=== PATIENT | male | born 1960 | race Caucasian/White ===

== ENCOUNTER → 2018-02-23 10:16 | Outpatient (REF) | payer OTHER, SELFPAY ==
[2018-02-23 13:25] LABS: Basophils # 0.1 K/mm3 (0-0.2); Basophils % 0.8 % (0.1-2.0); Eosinophils # 0.2 K/mm3 (0.0-0.4); Hematocrit 51.4 % (42.0-52.0); Hemoglobin 17.1 g/dL (14.1-18.0); Lymphocytes # 2.6 K/mm3 (0.7-4.5); Lymphocytes % 34.3 K/mm3 (10-50); Mean Corpuscular HGB Conc 33.3 g/dL (31.8-35.4); Mean Corpuscular Hemoglobin 30.2 pg (27.0-31.2); Mean Corpuscular Volume 90.7 fl (80-94); Mean Platelet Volume 7.8 fl (7.4-10.4); Monocytes # 0.5 K/mm3 (0.1-1.0); Monocytes % 6.7 % (1.7-9.3); Neutrophils # 4.1 K/mm3 (1.8-7.8); Neutrophils % 55.2 % (37.0-80.0); Platelet Count 269 K/mm3 (142-424); Red Blood Count 5.66 M/mm3 (4.60-6.20); Red Cell Distribution Width 12.8 % (11.5-17.5); White Blood Count 7.5 K/mm3 (4.8-10.8)
[2018-02-23 14:07] LABS: Alanine Aminotransferase 34 U/L (12-78); Albumin Level 3.6 gm/dL (3.4-5.0); Albumin/Globulin Ratio 1.1 (1.1-1.8); Alkaline Phosphatase 57 U/L (46-116); Anion Gap 14.8 mEq/L (5-15); Aspartate Amino Transferase 17 U/L (15-37); Bilirubin,Total 0.3 mg/dL (0.2-1.0); Blood Urea Nitrogen 17 mg/dL (7-18); Calcium 9.1 mg/dL (8.5-10.1); Carbon Dioxide 26 mmol/L (21.0-32.0); Chloride 104 mmol/L (98-107); Chol/HDL Ratio 4.9 (1-3.5); Cholesterol 146 mg/dL (140-200); Creatinine,Serum 1.08 mg/dL (0.70-1.30); Estimated Glomerular Filt Rate 71 ml/min (>60); Free T4 (Free Thyroxine) 0.87 ng/dl (0.76-1.46); GFR (African American) 86 ML/MIN (>60); Globulin 3.3 gm/dl (1.3-3.2); Glucose 121 mg/dL (74-106); HDL Cholesterol 30 mg/dL (27-67); LDL Cholesterol 72 mg/dL (0-130); Potassium 4.8 mmoL/L (3.5-5.1); Sodium 140 mmol/L (136-145); Thyroid Stimulating Hormone 0.99 uIU/ml (0.358-3.740); Total Protein,Serum 6.9 gm/dL (6.4-8.2); Triglycerides 221 mg/dL (30-200); VLDL Cholesterol 44 mg/dL (0-40)
[2018-02-23 15:01] LABS: Hemoglobin A1C 5.7 % (0.0-7.0)
[2018-02-24 13:02] LABS: Vitamin D 25 Hydroxy 20.5 ng/mL (30.0-100.0)
== END ==
LOC: LAB 10:16
PROVIDERS: Visit Provider Nurse Practitioner Family
DX: R53.83 Other fatigue (principal); I10 Essential (primary) hypertension; Z79.899 Other long term (current) drug therapy
CPT/HCPCS: 80053; 80061; 82652; 83036; 84439; 84443; 85025

== ENCOUNTER → 2018-03-23 07:43 | Outpatient (CLI) | payer OTHER, SELFPAY ==
--- NOTE | 2018-03-23 07:48 | XR_ITS ---
XR knee RT 4V HISTORY: ITS.REASON: right knee pain/ weightbearing ORDERING PHYSICIAN: Anthony Aguilar MD PATIENT AGE: 57 years COMPARISON: 05/31/2016 FINDINGS: Severe osteoarthritic changes are present involving the medial compartment and patellofemoral joint with moderate osteoarthritis of the lateral compartment. Knee joint effusion is present in the suprapatellar region. Prominent osteophytes are present at the patellofemoral joint and lateral compartment. There is sclerosis of the medial plateau proximal tibia. There is mild lateral subluxation of the tibia of 8 mm which is slightly increased compared to the previous exam. The loss of the medial joint space worse on today's exam with increasing sclerosis at the medial joint space. IMPRESSION: Severe osteoarthritis of the right knee as described above. This has progressed somewhat compared to the previous exam
== END ==
PROVIDERS: PCP Nurse Practitioner Family; Visit Provider Orthopaedic Surgery
DX: M25.561 Pain in right knee (principal)
CPT/HCPCS: 73564

== ENCOUNTER → 2018-10-19 13:52 | Outpatient (CLI) | payer OTHER, SELFPAY ==
[2018-10-19 14:16] LABS: Basophils # 0.1 K/mm3 (0-0.2); Basophils % 1.1 % (0.1-2.0); Eosinophils # 0.3 K/mm3 (0.0-0.4); Eosinophils % 3.1 % (0.1-12.0); Hematocrit 53.5 % (42.0-52.0); Hemoglobin 17.5 g/dL (14.1-18.0); Lymphocytes # 2.2 K/mm3 (0.7-4.5); Lymphocytes % 26.8 % (10-50); Mean Corpuscular HGB Conc 32.7 g/dL (31.8-35.4); Mean Corpuscular Hemoglobin 29.6 pg (27.0-31.2); Mean Corpuscular Volume 90.6 fl (80-94); Mean Platelet Volume 8.7 fl (7.4-10.4); Monocytes # 0.5 K/mm3 (0.1-1.0); Monocytes % 6.5 % (1.7-9.3); Neutrophils # 5.1 K/mm3 (1.8-7.8); Neutrophils % 62.5 % (37.0-80.0); Platelet Count 239 K/mm3 (142-424); Red Cell Distribution Width 13.4 % (11.5-17.5); White Blood Count 8.1 K/mm3 (4.8-10.8)
[2018-10-19 14:40] LABS: Alanine Aminotransferase 65 U/L (12-78); Albumin/Globulin Ratio 1.1 (1.1-1.8); Alkaline Phosphatase 106 U/L (46-116); Anion Gap 17.3 mEq/L (5-15); Aspartate Amino Transferase 24 U/L (15-37); Bilirubin,Total 0.6 mg/dL (0.2-1.0); Blood Urea Nitrogen 21 mg/dL (7-18); Calcium 9.4 mg/dL (8.5-10.1); Carbon Dioxide 25 mmol/L (21.0-32.0); Chloride 93 mmol/L (98-107); Chol/HDL Ratio 7.3 (1-3.5); Cholesterol 161 mg/dL (140-200); Creatinine,Serum 1.34 mg/dL (0.70-1.30); Estimated Glomerular Filt Rate 55 ml/min (>60); GFR (African American) 66 ML/MIN (>60); Globulin 3.8 gm/dl (1.3-3.2); HDL Cholesterol 22 mg/dL (27-67); Potassium 4.3 mmoL/L (3.5-5.1); Sodium 131 mmol/L (136-145); T4 (Thyroxine) 9.9 ug/dl (4.7-13.3); Thyroid Stimulating Hormone 1.59 uIU/ml (0.358-3.740); Total Protein,Serum 7.8 gm/dL (6.4-8.2)
[2018-10-19 14:42] LABS: Triglycerides 641 mg/dL (30-200)
[2018-10-19 14:45] LABS: Glucose 481 mg/dL (74-106); Hemoglobin A1C 8.9 % (0.0-7.0)
[2018-10-21 06:26] LABS: Vitamin D 25 Hydroxy 25.1 ng/mL (30.0-100.0)
== END ==
PROVIDERS: Visit Provider Nurse Practitioner Family
DX: E11.9 Type 2 diabetes mellitus without complications (principal); J44.9 Chronic obstructive pulmonary disease, unspecified
CPT/HCPCS: 80053; 80061; 82652; 83036; 84436; 84443; 85025

== ENCOUNTER → 2018-11-02 10:08 | Outpatient (CLI) | payer OTHER, SELFPAY | PROVIDERS: PCP Emergency Medicine; Visit Provider Nurse Practitioner Family | DX: E11.9 Type 2 diabetes mellitus without complications (principal); Z71.3 Dietary counseling and surveillance | CPT/HCPCS: 97802 ==

== ENCOUNTER → 2020-03-11 13:35 | Outpatient (CLI) | payer OTHER, SELFPAY ==
--- NOTE | 2020-03-11 13:38 | XR_ITS ---
PROCEDURE: XR KNEE RT 4V CLINICAL INDICATION: right knee pain COMPARISON: [id number] KNEE-3 VIEWS-RT from 05/31/2016 [id number] XR knee RT 4V from 03/23/2018 FINDINGS: No fracture or dislocation. No lytic or blastic change. There is normal mineralization. Severe osteoarthritic changes are present involving the right knee greatest at the medial compartment and patellofemoral joint with loss of joint space medially. There is osteophyte formation. Bony sclerosis also noted medially. There is mild lateral subluxation of the tibia of approximately 5 mm and mild genu varum. Also suspect suprapatellar effusion. Other findings:None. IMPRESSION: Severe osteoarthritis of the right knee overall not significantly changed Dictated by: Smith Pleitez MD 03/11/2020 15:03 Electronically signed by Smith Pleitez MD in [place] 03/11/2020 15:03
== END ==
PROVIDERS: Visit Provider Orthopaedic Surgery
DX: M17.11 Unilateral primary osteoarthritis, right knee (principal); M25.561 Pain in right knee
CPT/HCPCS: 73564

== ENCOUNTER 2020-11-16 10:31 | Emergency (ER) | payer OTHER, SELFPAY ==
[2020-11-16] VITALS (8 sets, daily range): BP systolic 99–135; BP diastolic 64–75; PULSE 70–106; RESP 20–22; TEMP 36.7; O2SAT 90–93; BMI 40.6
--- NOTE | 2020-11-16 10:24 | ECG_ITS ---
APPROVED REPORT Exam: Resting ECG HR:105 bpm ECG Measurements Heart Rate 105 AXES DC 146 P 59 QRSd 90 QRS 86 QT 318 T 41 QTc 420 Conclusion Sinus tachycardia Low voltage QRS Borderline ECG Electronically signed by : Polo Luis, 11/18/2020 07:12:20
--- NOTE | 2020-11-16 10:32 | XR_ITS ---
PROCEDURE: XR CHEST PORTABLE Referring Doctor: Suresh Gardner Patient Age:60Y CLINICAL HISTORY: cp dyspnea COMPARISON: CR CXR CHEST(2 VIEWS-NOT PORTABLE) from 09/17/2015 CR XR CHEST PORTABLE from 10/23/[address] ANGIO CHEST from 11/16/2020 FINDINGS: . Dense prominent opacity left base obscures left hemidiaphragm and left heart border.. Appears reflect prominent area of dense LLL consolidation along with left pleural effusion. Left pleural effusion yields generous meniscus left lung base and towards left CP angle with minimal fluid tracking upward along the lateral left chest. The left upper lung field mildly hyperexpanded but clear upper normal pulmonary vascularity bilaterally Right lung. Upper normal markings at the right base most likely reflecting some atelectasis as CT from today reveal no the significant infiltrate here. There is some central airway thickening which is evident on the CT as well as plain film with mild peribronchial cuffing most evident at the right perihilar region. Mild accentuation of perihilar markings likely reflects the central airway inflammation/bronchitis component. IMPRESSION: Prominent dense consolidation left lower lobe. Moderate left pleural effusion. Central airway thickening and inflammatory the changes-yields periBronchial cuffing at hilar regions Dictated by: Moshe Levi MD 11/16/2020 14:32 Moshe Levi MD in [place] 11/16/2020 14:32
--- NOTE | 2020-11-16 10:37 | CT_ITS ---
PROCEDURE: CT ANGIO CHEST Referring Doctor: Suresh Gardner Patient Age:60Y CLINCIAL INDICATION: pe. Left chest pain. Dyspnea short of breath COPD current smoker COMPARISON: CR CXR CHEST(2 VIEWS-NOT PORTABLE) from 09/17/2015 CR [id number] [id number] VIEWS from 09/17/2015 CR XR CHEST PORTABLE from 10/23/2019 CR XR CHEST PORTABLE from 11/16/2020 TECHNIQUE: IV Contrast: 70ML Isovue 370 bolus administration followed by 40 mL normal saline Helical axial images obtained with thick slab MIP P sagittal and coronal reformats performed by technologist on on CT workstation. All CT scans at the facility use one or more dose reduction, viz: automated exposure control, ma/kV adjustment per patient size (including targeted exams where dose is matched to indication, i.e. head), or iterative reconstruction technique. FINDINGS: PULMONARY ARTERIES: No pulmonary embolus evident.. Central pulmonary arteries are well visualized and appear satisfactory, normal. There is some motion left lung base which degrades images LLL yielding a slight heterogeneous appearance to the left lower lobe 4th and 5th order vessels-but I believe these are satisfactory with no good evidence of intraluminal thrombus. No PE evident . AORTA: No acute finding. No thoracic aortic aneurysm or dissection evident LUNGS: . Left chest: Prominent left lower lobe dense consolidation left lung base. Above this reflects pneumonia along with atelectasis;. Air bronchograms into region, mild thickening these as well as more central airways L LL. The elevation of the left hemidiaphragm reflects the volume loss and atelectasis component in this region of density/LLL consolidation. Suggestion minimal the airspace disease posterior ELEANOR, just anterior to the major fissure. (Sagittal 67 axial 49) Minimal linear areas of what appear to be more likely scarring and atelectasis anteriorly ELEANOR. (Sagittal 69-66, axial 51, 52) Right lung: Developing emphysematous changes with mild/moderate hyperexpansion. Tiny a few scattered very tiny blebs. Right lung fairly clear with only some minimal dependent atelectasis posteriorly. No definitive focal pneumonia, nor other patchy areas of pneumonia mild. There is suggestion mild central airway thickening which could reflect bronchitis. Any wheezing clinically? PLEURA: moderate left pleural effusion. Pleural fluid is seen lying along the posterior aspect the left chest most evident towards the left base surrounding the area of LLL consolidation and/atelectasis. HEART: Heart upper normal in size size. Small pericardial effusion. MEDIASTINAL AND HILAR STRUCTURES: Slight generous hilar regions may reflect some reactive nodes in both vinicius of no discrete hilar mass. Mediastinum was scattered small to moderate nodes. No significantly enlarged nodes in the mediastinum Upper normal wall thickness of these thoracic esophagus BONY STRUCTURES: No acute bony abnormalities apparent. Only very minor degenerative changes T T-spine. LYMPH NODES: No significant enlarged lymph nodes evident. Question some slightly enlarged nodes at the hilar region which could benefit from follow-up UPPER ABDOMEN: Diffuse fatty changes of generous size liver IMPRESSION: 1..No evidence of pulmonary embolism. Aorta unremarkable 2.Underlying emphysematous changes 3..Dense Left Lower Lobe Consolidation/ Pneumonia. LLLVolume loss reflecting significant atelectasis associated with this dense pneumonia. LLL air bronchograms noted here Left upper lobe with only some minor areas of atelectasis and possible scant infiltrate but overall this is more of an LL L lobar pneumonia pattern.. 4.. Left pleural effusion, moderate size
--- NOTE | 2020-11-16 10:40 | HMH.EDGENADL ---
ED Disposition Clinical Impression: Left against medical advice Pneumonia Qualifiers: Pneumonia type: due to unspecified organism Laterality: left Lung location: lower lobe of lung Qualified Code(s): J18.9 - Pneumonia, unspecified organism Disposition: Left Against Medical Advice Condition on Discharge: Fair Prescriptions: Azithromycin 250 mg PO DAILY 5 Days #6 tab Prescription Printed Referrals: PCP,No [Primary Care Provider] - - Critical Care Critical Care Time: No Attestation: On 11/16/20, the high probability of a clinically significant, sudden or life threatening deterioration of the following system(s) required my full and direct attention, intervention and personal management. The time I documented below is in addition to time spent performing reported procedures but includes the following listed in this critical care notation. Medical Decision Making - Medical Records Medical records reviewed: Yes: I reviewed the patient's medical records. - Luis Inquiry Pt receiving controlled substance: No Vital Signs: 11/16/20 10:31 11/16/20 10:56 11/16/20 11:30 Temperature 98.1 F Temperature Source Oral Pulse Rate Pulse Rate [Right Radial] 106 H 102 H 98 H Respiratory Rate 22 20 Blood Pressure Blood Pressure [Right Arm] 99/68 L 108/67 L 117/75 Blood Pressure Mean [Right Arm] 78 80 89 Blood Pressure Source [Right Arm] Automatic Cuff Automatic Cuff Blood Pressure Position [Right Arm] Sitting Sitting Sitting 02 Sat by Pulse Oximetry 92 L 93 L 93 L Oxygen Delivery Method Room Air Room Air Room Air 11/16/20 12:12 11/16/20 12:43 11/16/20 13:39 Temperature Temperature Source Pulse Rate Pulse Rate [Right Radial] 96 H 96 H 101 H Respiratory Rate Blood Pressure Blood Pressure [Right Arm] 104/64 L 108/69 L 135/73 Blood Pressure Mean [Right Arm] 77 82 93 Blood Pressure Source [Right Arm] Automatic Cuff Automatic Cuff Automatic Cuff Blood Pressure Position [Right Arm] Sitting Sitting Sitting 02 Sat by Pulse Oximetry 90 L 91 L 92 L Oxygen Delivery Method Room Air Room Air Room Air 11/16/20 14:25 11/16/20 14:41 Temperature 98.1 F Temperature Source Pulse Rate 70 Pulse Rate [Right Radial] 96 H Respiratory Rate 22 Blood Pressure 110/71 Blood Pressure [Right Arm] 110/71 Blood Pressure Mean [Right Arm] 84 Blood Pressure Source [Right Arm] Automatic Cuff Blood Pressure Position [Right Arm] Sitting 02 Sat by Pulse Oximetry 92 L Oxygen Delivery Method Room Air Room Air - Lab Data Lab Results 11/16/20 10:30: WBC 14.3 H, RBC 5.66, Hgb 16.8, Hct 52.3 H, MCV 92.4, MCH 29.6, MCHC 32.1, RDW 16.3, Plt Count 319, MPV 15.1 H, Neut % (Auto) 61.0, Lymph % (Auto) 19.5, [place] % (Auto) 11.2 H, Eos % (Auto) 5.9, Baso % (Auto) 2.3 H, Neut # (Auto) 8.8 H, Lymph # (Auto) 2.8, [place] # (Auto) 1.6 H, Eos # (Auto) 0.8 H, Baso # (Auto) 0.3 H 11/16/20 10:30: Sodium 137, Potassium 4.2, Chloride 106, Carbon Dioxide 24, Anion Gap 11.2, BUN 15, Creatinine 1.00, Estimated Creat Clear 121, Estimated GFR 76, Est GFR ( Amer) 93, Glucose 185 H, Calcium 9.5, Troponin I < 0.01 11/16/20 10:30: Lactate 1.9 11/16/20 10:30: NT-Pro-B Natriuret Pep 28.2 11/16/20 10:42: VBG pH 7.40, VBG pCO2 32.9 L, VBG pO2 79.6 H, VBG HCO3 19.8 L, VBG Total CO2 20.8 L, VBG O2 Saturation 96.7 H, VBG Base Excess -5.0 L Result diagrams: 11/16/20 10:30 11/16/20 10:30 Orders (Tests/Meds): ED MEDICATIONS Discontinued Medications Generic Name Dose Route Start Last Admin Trade Name Freq PRN Reason Stop Dose Admin Albuterol/Ipratropium 4 puff 11/16/20 10:54 11/16/20 10:45 Combivent 20mcg/100mcg Respimat Inhaler IH 11/16/20 10:55 4 puff ONCE ONE Administration Aspirin 324 mg 11/16/20 10:40 11/16/20 10:44 Aspirin 81mg Chewable Tablet PO 11/16/20 10:41 243 mg ONCE ONE Administration Ceftriaxone Sodium 1 gm/ 50 mls @ 100 mls/hr 11/16/20 13:00 11/16/20 14:08 Sodium Chloride IV 11/30/20
[2020-11-16 10:48] LABS: Chloride 106 mmol/L (98-107); Potassium 4.2 mmoL/L (3.5-5.1); Sodium 137 mmol/L (136-145)
[2020-11-16 10:49] LABS: Basophils # 0.3 K/mm3 (0-0.2); Basophils % 2.3 % (0.1-2.0); Eosinophils # 0.8 K/mm3 (0.0-0.4); Eosinophils % 5.9 % (0.1-12.0); Hematocrit 52.3 % (42.0-52.0); Hemoglobin 16.8 g/dL (14.1-18.0); Lymphocytes # 2.8 K/mm3 (0.7-4.5); Lymphocytes % 19.5 % (10-50); Mean Corpuscular HGB Conc 32.1 g/dL (31.8-35.4); Mean Corpuscular Hemoglobin 29.6 pg (27.0-31.2); Mean Corpuscular Volume 92.4 fl (80-94); Mean Platelet Volume 15.1 fl (7.4-10.4); Monocytes # 1.6 K/mm3 (0.1-1.0); Monocytes % 11.2 % (1.7-9.3); Neutrophils # 8.8 K/mm3 (1.8-7.8); Platelet Count 319 K/mm3 (142-424); Red Blood Count 5.66 M/mm3 (4.60-6.20); Red Cell Distribution Width 16.3 % (11.5-17.5); White Blood Count 14.3 K/mm3 (4.8-10.8)
[2020-11-16 10:51] LABS: Anion Gap 11.2 mEq/L (5-15); Blood Urea Nitrogen 15 mg/dl (9-20); Carbon Dioxide 24 mmol/L (22.0-30.0); Creatinine Clearance Estimated 121 mL/min (50-200); Estimated Glomerular Filt Rate 76 ml/min (>60); GFR (African American) 93 ML/MIN (>60); Lactic Acid 1.9 mmol/L (0.7-2.1)
[2020-11-16 10:52] LABS: Calcium 9.5 mg/dl (8.4-10.2); Glucose 185 mg/dl (74-100)
--- NOTE | 2020-11-16 10:54 | PC.NURSE ---
rad notified of new orders on pt
--- NOTE | 2020-11-16 10:55 | PC.NURSE ---
notified RT of VBG
[2020-11-16 11:01] LABS: NT Pro Brain Natriuretic Pep. 28.2 pg/mL (0-125)
[2020-11-16 11:05] LABS: VBG HCO3 19.8 mmol/L (23-30); VBG Oxygen Saturation 96.7 % (50-70); VBG PCO2 32.9 mmol/L (35-51); VBG PO2 79.6 mmol/L (28-40); VBG Total CO2 20.8 mmol/L (23-27)
--- NOTE | 2020-11-16 11:05 | PC.NURSE ---
Pt to rad.
[2020-11-16 11:08] LABS: Troponin I < 0.01 ng/ml (0.00-0.034)
--- NOTE | 2020-11-16 11:26 | PC.NURSE ---
Pt returned from rad.
--- NOTE | 2020-11-16 13:22 | PC.NURSE ---
PEBBLES EGAN at doing procedure.
--- NOTE | 2020-11-16 14:17 | PC.NURSE ---
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
--- NOTE | 2020-11-16 14:37 | PC.NURSE ---
pt refusing admission, pt refusing to stay in ER to receive his other IV antibiotic. ER MD was pt bedside explaining risk of pt leaving AMA, pt verbalizes understanding.
--- NOTE | 2020-11-17 05:06 | PC.NURSE ---
Preliminary Blood Culture results called from lab and Dr Gonzalez was notified.
== END 2020-11-16 14:41 | disposition left against medical advice (07) ==
PROVIDERS: Emergency Provider Emergency Medicine
DX: Z20.822 Contact with and (suspected) exposure to COVID-19 (principal); J18.9 Pneumonia, unspecified organism; E11.65 Type 2 diabetes mellitus with hyperglycemia; I10 Essential (primary) hypertension; E78.5 Hyperlipidemia, unspecified; J90 Pleural effusion, not elsewhere classified; F17.210 Nicotine dependence, cigarettes, uncomplicated; J44.9 Chronic obstructive pulmonary disease, unspecified; Z79.899 Other long term (current) drug therapy
CPT/HCPCS: 71045; 71275; 80048; 82803; 83605; 83880; 84484; 85025; 87040; 87077; 93005; 96374; 96375; 99284; Q9967; U0003

== ENCOUNTER → 2023-01-03 11:42 | Outpatient (CLI) | payer OTHER, SELFPAY ==
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
== END ==
PROVIDERS: PCP Family Medicine; Visit Provider Family Medicine
DX: M25.511 Pain in right shoulder (principal)
CPT/HCPCS: 73030

== ENCOUNTER → 2023-02-02 10:29 | Outpatient (CLI) | payer OTHER, SELFPAY | PROVIDERS: PCP Family Medicine; Visit Provider Internal Medicine | DX: M25.511 Pain in right shoulder (principal) ==